=== PATIENT | male | born 1965 | race Caucasian/White ===

== ENCOUNTER 2020-08-11 08:31 | Emergency (ER) | payer OTHER ==
[~2020-08-11] VITALS: Ht 167.6 cm; Wt 60.0 kg
[2020-08-11] MEDS ORDERED: OMEPRAZOLE20 MG PO (09:03)
[2020-08-11] MEDS ORDERED: METOPROLOL SUC100 MG PO (09:03)
[2020-08-11] MEDS ORDERED: METHOCARBAMOL750 MG PO (09:03)
[2020-08-11] MEDS ORDERED: NORVASC5 MG PO (10:08)
--- NOTE | 2020-08-12 12:37 | EKG ---
[facility] [address] [facility] [place] [address] Signed Sinus tachycardia with occasional premature ventricular complexes Otherwise normal ECG No previous ECGs available Confirmed by SHANIKA SCHUMACHER DO ([id number]) on 08/12/2020 12:37:00 PM Electronically Signed By: SHANIKA SCHUMACHER DO 08/12/20 1237 PATIENT NAME: PAO MARQUEZ Electrocardiogram DATE OF : 61 PHYSICIAN: SHANIKA SCHUMACHER DO REPORT #: [id number] REPORT IS CONFIDENTIAL AND NOT TO BE RELEASED WITHOUT AUTHORIZATION
== END 2020-08-11 10:24 | disposition home or self-care (01) ==
LOC: ED 08:31
DX: I34.0 Nonrheumatic mitral (valve) insufficiency (principal); I50.9 Heart failure, unspecified; Z79.899 Other long term (current) drug therapy
CPT/HCPCS: 71045; 80053; 83735; 83880; 84484; 85025; 93005; 93010; 99285-25